=== PATIENT | male | born 1995 | race American Indian/Alaskan Native ===

== ENCOUNTER 2019-01-09 16:13 | Emergency (ER) | payer OTHER ==
[2019-01-09 16:44] VITALS: BMI 22.7
[2019-01-09] MEDS ORDERED: Lidocaine/Epi 1% 1:100000 20 ML IJ STA (16:45)
[2019-01-09] MEDS ORDERED: TDAP Vaccine 0.5 mL Syr IM ONE (16:46)
[2019-01-09 16:57] VITALS: BP 134/85; PULSE 66; RESP 18; TEMP 98.5; O2SAT 99
--- NOTE | 2019-01-09 18:11 | ED PDOC ---
Arrival/HPI - General Chief Complaint: Abnormal Skin Integrity Historian: Patient - History of Present Illness Narrative History of Present Illness (Text): 01/09/19 16:45 23 year old male, with no significant past medical history, presents to the ED for evaluation of a laceration sustained to his left hand prior to arrival. Patient state he was washing his hand in the sink when he accidentally grabbed a knife and cut his left hand. Patient noted immediate bleeding prompting him to present to the ED for evaluation. Patient denies any other associated somatic complaints. Patient denies any fever, chills, nausea, vomiting, diarrhea, abdominal pain, chest pain, SOB or any other complaints. Patient does not recall his last tetanus shot. Time/Duration: Prior to Arrival Symptom Onset: Gradual Symptom Course: Unchanged Activities at Onset: Light Context: Home Past Medical History - Provider Review Nursing Documentation Reviewed: Yes - Infectious Disease Hx of Infectious Diseases: None - Psychiatric Hx Substance Use: No - Anesthesia Hx Anesthesia: No Family/Social History - Physician Review Nursing Documentation Reviewed: Yes Family/Social History: No Known Family HX Smoking Status: Never Smoked Hx Alcohol Use: No Hx Substance Use: No Allergies/Home Meds Allergies/Adverse Reactions: Allergies No Known Allergies Allergy (Verified 01/09/19 16:44) Review of Systems - Physician Review All systems were reviewed & negative as marked: Yes - Review of Systems Constitutional: absent: Fevers Respiratory: absent: SOB, Cough Cardiovascular: absent: Chest Pain Gastrointestinal: absent: Abdominal Pain Genitourinary Male: absent: Dysuria, Urinary Output Changes Musculoskeletal: absent: Back Pain, Neck Pain Skin: Laceration. absent: Rash Neurological: absent: Headache, Dizziness Endocrine: absent: Diaphoresis Psychiatric: absent: Anxiety Physical Exam Vital Signs Reviewed: Yes Vital Signs Temp Pulse Resp BP Pulse Ox 01/09/19 16:52 98.5 F 66 18 134/85 99 Temperature: Afebrile Blood Pressure: Normal Pulse: Regular Respiratory Rate: Normal Appearance: Positive for: Well-Appearing, Non-Toxic, Comfortable Pain Distress: None Mental Status: Positive for: Alert and Oriented X 3 - Systems Exam Head: Present: Atraumatic, Normocephalic Pupils: Present: PERRL Extroacular Muscles: Present: EOMI Conjunctiva: Present: Normal Respiratory/Chest: Present: Clear to Auscultation, Good Air Exchange. No: Resp iratory Distress, Accessory Muscle Use Cardiovascular: Present: Regular Rate and Rhythm, Normal S1, S2. No: Murmurs Abdomen: No: Tenderness, Distention, Peritoneal Signs Upper Extremity: Present: Other (3.5 cm laceration actively bleeding). No: Cyanosis, Edema Lower Extremity: Present: Normal Inspection. No: Edema Neurological: Present: GCS=15, Speech Normal Skin: Present: Warm, Dry, Normal Color. No: Rashes Psychiatric: Present: Alert, Oriented x 3, Normal Insight, Normal Concentration Medical Decision Making ED Course and Treatment: 01/09/19 16:25 Impression: 23 year old male presents to the ED for evaluation of laceration to his left hand. Plan: -- Laceration repair -- Reassess and disposition Prior Visits: Notes and results from previous visits were reviewed. Progress Notes: 01/09/19 16:25 PROCEDURE: LACERATION REPAIR Performed by the medical student under supervision of the emergency provider Location: medial palmar aspect of left hand Length: 3.5 cm Description: "clean wound edges","no foreign bodies" Distal CMS: Normal. No deficits. Neurovascularly intact. Anesthesia: Lidocaine 1% Preparation: The wound was cleaned with NS and Betadyne. The area was prepped and draped in the usual sterile fashion. Exploration: The wound was explored and no foreign bodies were found. Procedure: The wound was closed with 4 o' nylon. There was good approximation. In total, 7 sutures were used. Post-Procedure: Good closure and hemostasis. The patient tolerated the procedure well and there were no complications. CSM remains intact. Post procedure dressing applied. - Medication Orders Current Medication Orders: Discontinued Medications Lidocaine/Epinephrine (Lidocaine/Epi 1% 1:[id number] 20 Ml) 10 ml IJ STAT STA Stop: 01/09/19 16:46 Tetanus/Reduced Diphtheria/Acell Pertussis (Boostrix Vaccine Inj) 0.5 ml IM .ONCE ONE Stop: 01/09/19 16:47 - Scribe Statement The provider has reviewed the documentation as recorded by the Tonoibmireya Hill All medical record entries made by the Scribe were at my direction and personally dictated by me. I have reviewed the chart and agree that the record accurately reflects my personal performance of the history, physical exam, medical decision making, and the department course for this patient. I have also personally directed, reviewed, and agree with the discharge instructions and disposition. Disposition/Present on Arrival - Present on Arrival Any Indicators Present on Arrival: No History of DVT/PE: No History of Uncontrolled Diabetes: No Urinary Catheter: No History of Decub. Ulcer: No History Surgical Site Infection Following: None - Disposition Have Diagnosis and Disposition been Completed?: Yes Diagnosis: Hand laceration Disposition: HOME/ ROUTINE Disposition Time: 17:50 Patient Problems: Current Active Problems Problem Status Onset Hand laceration Acute Condition: IMPROVED Discharge Instructions (ExitCare): Laceration Repair With Stitches (DC) Additional Instructions: JOSE ALBERTO, thank you for letting us take care of you today. Your provider was Andrei Coburn DO and you were treated for LACERATION ON HAND. The emergency medical care you received today was directed at your acute symptoms. If you were prescribed any medication, please fill it and take as directed. It may take several days for your symptoms to resolve. Return to the Emergency Department if your symptoms worsen, do not improve, or if you have any other problems. Please contact your doctor or call one of the physicians/clinics you have been referred to that are listed on the Patient Visit Information form that is included in your discharge packet. Bring any paperwork you were given at disch arge with you along with any medications you are taking to your follow up visit. Our treatment cannot replace ongoing medical care by a primary care provider outside of the emergency department. Thank you for allowing the [facility] team to be part of your care today. Keep area clean and dry at all times. Follow up in our clinic in 7-10 days for suture removal. Prescriptions: Cephalexin [cephalexin] 500 mg PO TID #15 cap Referrals: [facility] [Outside] - Follow up with primary Becki Sal MD [Medical Doctor] - Follow up with primary Forms: [employer] ([place]), WORK NOTE
[2019-01-09] MEDS ORDERED: Bacitracin 500 Units/gm Oint Foilpak UD ONE (18:27)
== END 2019-01-09 18:42 | disposition home or self-care (01) ==
LOC: ED 16:13
DX: S61.412A Laceration without foreign body of left hand, initial encounter (principal); W26.0XXA Contact with knife, initial encounter; Z23 Encounter for immunization

== ENCOUNTER 2019-01-16 17:05 | Emergency (ER) | payer OTHER ==
[2019-01-16 17:06] VITALS: BMI 22.7
[2019-01-16 17:29] VITALS: BP 133/80; PULSE 74; RESP 18; TEMP 98.7; O2SAT 98
--- NOTE | 2019-01-16 17:35 | ED PDOC ---
Arrival/HPI - General Chief Complaint: Suture/Staple Removal Time Seen by Provider: 01/16/19 17:10 Historian: Patient - History of Present Illness Narrative History of Present Illness (Text): 01/16/19 17:32 23 yo M presents for wound check and suture removal, sutures were placed 7 days ago. Reports no pain, redness, swelling, decrease in ROM. Past Medical History - Infectious Disease Hx of Infectious Diseases: None - Psychiatric Hx Substance Use: No - Anesthesia Hx Anesthesia: No Family/Social History Family/Social History: No Known Family HX Smoking Status: Never Smoked Hx Alcohol Use: No Hx Substance Use: No Allergies/Home Meds Allergies/Adverse Reactions: Allergies No Known Allergies Allergy (Verified 01/16/19 17:29) Review of Systems - Review of Systems Constitutional: absent: Fatigue, Fevers Musculoskeletal: absent: Arthralgias, Joint Swelling Skin: Laceration. absent: Rash, Skin Lesions Physical Exam Vital Signs Temp Pulse Resp BP Pulse Ox 01/16/19 17:22 98.7 F 74 18 133/80 98 Temperature: Afebrile Blood Pressure: Normal Pulse: Regular Respiratory Rate: Normal Appearance: Positive for: Well-Appearing, Non-Toxic, Comfortable Pain Distress: None Mental Status: Positive for: Alert and Oriented X 3 - Systems Exam Upper Extremity: Present: Normal ROM, NORMAL PULSES, Neurovascularly Intact, Capillary Refill < 2s, Norm 2-Pt Discrimination, Other (+healing laceration to the hypothenar aspect of the L hand). No: Tenderness, Swelling, Erythema, Temperature Abnormalties, Deformity Neurological: Present: GCS=15, CN II-XII Intact, Motor Func Grossly Intact, Normal Sensory Function Skin: Present: Warm, Dry, Normal Color. No: Rashes Psychiatric: Present: Alert, Oriented x 3, Normal Insight, Normal Concentration Medical Decision Making ED Course and Treatment: 01/16/19 17:33 Sutures removed easily by PA. Wound was inspected, there is noted wound dehiscence, patient advised to continue to keep the wound clean, instructed on daily wound care, advised to cover the wound with a bulky dressing to avoid repeated use of the hand and allow the wound to heal properly. - PA / SLIVER LAPPER / Resident Statement MD/DO has reviewed & agrees with the documentation as recorded. Disposition/Present on Arrival - Present on Arrival Any Indicators Present on Arrival: No History of DVT/PE: No History of Uncontrolled Diabetes: No Urinary Catheter: No History of Decub. Ulcer: No History Surgical Site Infection Following: None - Disposition Have Diagnosis and Disposition been Completed?: Yes Diagnosis: Visit for wound check, Visit for suture removal Disposition: HOME/ ROUTINE Disposition Time: 17:30 Patient Plan: Discharge Condition: STABLE Discharge Instructions (ExitCare): Stitches Removal, Wound Care (DC) Additional Instructions: Follow up with referral provided, return to the ER at any time for any new or worsening symptoms. Referrals: PCP,NO [Primary Care Provider] - Follow up with primary Antonio,Veronika Deal MD [Staff Provider] - Follow up with primary Forms: [facility] ([place]), WORK NOTE
== END 2019-01-16 17:58 | disposition home or self-care (01) ==
LOC: ED 17:05
DX: Z48.02 Encounter for removal of sutures (principal)